=== PATIENT | female | born 1950 | race Caucasian/White ===

== ENCOUNTER → 2017-03-02 | Outpatient (CLI) | payer MEDICARE ==
[~2017-03-02] MED LIST: /AUGM875TA; /LANS30GR; ACIDCAP PO; ASPI325T PO; ATOR1TAB18 PO; BABY81CH; BACL10TA2 PO; BACT400T PO; BUPR300T34 PO; BUTR10DI2 TD; CAHNTIXC PO; CALCTAB93; CARAFATE; CHAN0.5P PO; CLARINEX PO; CRANBERRY PILLS; CYCL5TA PO; DIFLUC150 PO; DIOV160T5; DIOV320T PO; DIOV80TA; DIOVAN80 PO; DIOVANH160 PO; DULO30CA PO; DYAZCA PO; FISH OIL; FISH100035 PO; GABA300C2 PO; GLIP5TAB8 PO; HABITROL14 TOPICAL; HABITROL2 TOPICAL; HABITROL7 TOPICAL; HCT; HYDR7.5T38 PO; JANU100T PO; LANS30CA PO; LASI40TA PO; LIPITOR10 PO; LIPITOR20 DAILY; LIPITOR20 PO; METF1000 PO; METF500T PO; MULTLIQ7; NASONEX NASAL; NICOTROLIN PO; NYSTATIN POWDER; NYSTATINP TOPICAL; PREMARI625 PO; PREV15CA; PREVACID30 PO; SIMV5TAB2; THERGRAN; TRAM50TA2 PO; TYL325; VALS40TA; VICO5TAB; VIT D; VITA200016 PO; WELL75TA PO; WELLBSR150 PO; WELLBUT300 PO; XANA0.5T PO; ZITHROM500 PO; ZOCO40TA; ZOCOR40 PO; [UNRECOGNIZED DRUG - CODE] PO; [UNRECOGNIZED DRUG - OTHER]; [UNRECOGNIZED DRUG - OTHER]
[2017-03-02 13:40] LABS: MEAN CORPUSCULAR HEMOGLOBIN 30.3 pg (27.0-33.0); MEAN CORPUSCULAR HGB CONC 32.4 g/dl (32.0-36.5); MEAN CORPUSCULAR VOLUME 93.5 fl (80.0-96.0); RED CELL DISTRIBUTION WIDTH 13.6 % (11.5-14.5); WHITE BLOOD COUNT 8.8 K/mm3 (4.0-10.0)
[2017-03-02 14:33] LABS: ALBUMIN 3.4 GM/DL (3.2-5.2); ALKALINE PHOSPHATASE 72 U/L (45-117); ALT/SGPT 29 U/L (12-78); ANION GAP 7 MEQ/L (8-16); AST/SGOT 32 U/L (15-37); BILIRUBIN,TOTAL 0.4 MG/DL (0.2-1.0); BLOOD UREA NITROGEN 11 MG/DL (7-18); CALCIUM LEVEL 9.5 MG/DL (8.8-10.2); CARBON DIOXIDE LEVEL 30 MEQ/L (21-32); CHLORIDE LEVEL 103 MEQ/L (98-107); CHOLESTEROL LEVEL 116 MG/DL (<200); CREATININE FOR GFR 0.75 MG/DL (0.55-1.02); GLOMERULAR FILTRATION RATE > 60.0 (>45); GLUCOSE, FASTING 112 MG/DL (80-110); MAGNESIUM LEVEL 1.9 MG/DL (1.8-2.4); POTASSIUM SERUM 4.6 MEQ/L (3.5-5.1); SODIUM LEVEL 140 MEQ/L (136-145); TOTAL PROTEIN 6.8 GM/DL (6.4-8.2); TRIGLYCERIDES LEVEL 143 MG/DL (<150)
== END ==
LOC: M WUC 09:52
PROVIDERS: ATTEND Nurse Practitioner Family
DX: E11.9 Type 2 diabetes mellitus without complications (principal); I10 Essential (primary) hypertension; E78.2 Mixed hyperlipidemia; F32.9 Major depressive disorder, single episode, unspecified; K21.9 Gastro-esophageal reflux disease without esophagitis; M54.41 Lumbago with sciatica, right side; E55.9 Vitamin D deficiency, unspecified; E83.42 Hypomagnesemia; E66.01 Morbid (severe) obesity due to excess calories; Z68.43 Body mass index [BMI] 50.0-59.9, adult; Z72.0 Tobacco use; J30.2 Other seasonal allergic rhinitis

== ENCOUNTER → 2017-03-04 | Outpatient (REF) | payer MEDICARE | LOC: M SFHCPLAZ 08:09 | PROVIDERS: ATTEND Nurse Practitioner Family | DX: E11.9 Type 2 diabetes mellitus without complications (principal); Z53.8 Procedure and treatment not carried out for other reasons ==

== ENCOUNTER → 2017-06-03 | Outpatient (CLI) | payer MEDICARE ==
[~2017-06-03] MED LIST changes: -ATOR1TAB18 PO; +ATOR80TA59 PO; +BUTR10DI TD; -BUTR10DI2 TD; -METF1000 PO; +METF10004 PO; -METF500T PO; +METF500T13 PO
[2017-06-03 14:10] LABS: ANION GAP 11 MEQ/L (8-16); BLOOD UREA NITROGEN 10 MG/DL (7-18); CALCIUM LEVEL 9.8 MG/DL (8.8-10.2); CARBON DIOXIDE LEVEL 24 MEQ/L (21-32); CHLORIDE LEVEL 103 MEQ/L (98-107); CREATININE FOR GFR 0.92 MG/DL (0.55-1.02); GLOMERULAR FILTRATION RATE > 60.0 (>45); GLUCOSE, FASTING 105 MG/DL (80-110); POTASSIUM SERUM 4.3 MEQ/L (3.5-5.1); SODIUM LEVEL 138 MEQ/L (136-145)
== END ==
LOC: M WUC 09:43
PROVIDERS: ATTEND Internal Medicine Cardiovascular Disease
DX: E11.9 Type 2 diabetes mellitus without complications (principal)

== ENCOUNTER → 2017-06-03 | Outpatient (CLI) | payer MEDICARE ==
[2017-06-03 14:11] LABS: BLOOD UREA NITROGEN 11 MG/DL (7-18); CREATININE FOR GFR 0.91 MG/DL (0.55-1.02); GLUCOSE, FASTING 102 MG/DL (80-110)
[2017-06-03 14:12] LABS: ALBUMIN 3.6 GM/DL (3.2-5.2); ALBUMIN/GLOBULIN RATIO 1.03 (1.00-1.93); ALKALINE PHOSPHATASE 66 U/L (45-117); ALT/SGPT 26 U/L (12-78); ANION GAP 10 MEQ/L (8-16); AST/SGOT 18 U/L (15-37); BILIRUBIN,TOTAL 0.5 MG/DL (0.2-1.0); CALCIUM LEVEL 9.8 MG/DL (8.8-10.2); CARBON DIOXIDE LEVEL 25 MEQ/L (21-32); CHLORIDE LEVEL 103 MEQ/L (98-107); CHOLESTEROL LEVEL 109 MG/DL (<200); GLOMERULAR FILTRATION RATE > 60.0 (>45); MAGNESIUM LEVEL 1.7 MG/DL (1.8-2.4); POTASSIUM SERUM 4.3 MEQ/L (3.5-5.1); SODIUM LEVEL 138 MEQ/L (136-145); TOTAL PROTEIN 7.1 GM/DL (6.4-8.2); TRIGLYCERIDES LEVEL 158 MG/DL (<150)
== END ==
LOC: M WUC 09:51
PROVIDERS: ATTEND Nurse Practitioner Family
DX: E78.2 Mixed hyperlipidemia (principal); E11.9 Type 2 diabetes mellitus without complications; E83.42 Hypomagnesemia

== ENCOUNTER → 2017-09-14 | Outpatient (CLI) | payer MEDICARE ==
[2017-09-14 14:38] LABS: ALBUMIN 3.6 GM/DL (3.2-5.2); ALBUMIN/GLOBULIN RATIO 1.16 (1.00-1.93); ALKALINE PHOSPHATASE 55 U/L (45-117); ALT/SGPT 20 U/L (12-78); ANION GAP 10 MEQ/L (8-16); AST/SGOT 17 U/L (7-37); BILIRUBIN,TOTAL 0.4 MG/DL (0.2-1.0); BLOOD UREA NITROGEN 12 MG/DL (7-18); CALCIUM LEVEL 9.4 MG/DL (8.8-10.2); CARBON DIOXIDE LEVEL 26 MEQ/L (21-32); CHLORIDE LEVEL 105 MEQ/L (98-107); CREATININE FOR GFR 0.79 MG/DL (0.55-1.02); GLOMERULAR FILTRATION RATE > 60.0 (>45); GLUCOSE, FASTING 98 MG/DL (80-110); POTASSIUM SERUM 4.5 MEQ/L (3.5-5.1); SODIUM LEVEL 141 MEQ/L (136-145); TOTAL PROTEIN 6.7 GM/DL (6.4-8.2)
== END ==
LOC: M WUC 09:42
PROVIDERS: ATTEND Nurse Practitioner Family
DX: E11.8 Type 2 diabetes mellitus with unspecified complications (principal); E66.9 Obesity, unspecified

== ENCOUNTER → 2018-02-23 | Outpatient (CLI) | payer MEDICARE | LOC: M WHC 09:19 | DX: Z78.0 Asymptomatic menopausal state (principal) | CPT/HCPCS: 77080 ==

== ENCOUNTER → 2018-03-05 | Outpatient (CLI) | payer MEDICARE ==
[2018-03-05 10:47] LABS: ALBUMIN 3.8 GM/DL (3.2-5.2); ALBUMIN/GLOBULIN RATIO 1.09 (1.00-1.93); ALKALINE PHOSPHATASE 72 U/L (45-117); ALT/SGPT 22 U/L (12-78); ANION GAP 7 MEQ/L (8-16); AST/SGOT 20 U/L (7-37); BILIRUBIN,TOTAL 0.4 MG/DL (0.2-1.0); BLOOD UREA NITROGEN 12 MG/DL (7-18); CALCIUM LEVEL 9.8 MG/DL (8.8-10.2); CARBON DIOXIDE LEVEL 27 MEQ/L (21-32); CHLORIDE LEVEL 105 MEQ/L (98-107); CHOLESTEROL LEVEL 146 MG/DL (<200); CHOLESTEROL RISK RATIO 2.474 (<5); GLOMERULAR FILTRATION RATE > 60.0 (>45); GLUCOSE, FASTING 108 MG/DL (70-100); HDL CHOLESTEROL 59 MG/DL (>40); LDL CHOLESTEROL 59.6 MG/DL (<100); NON-HDL-C 87 MG/DL; POTASSIUM SERUM 4.6 MEQ/L (3.5-5.1); SODIUM LEVEL 139 MEQ/L (136-145); TOTAL PROTEIN 7.3 GM/DL (6.4-8.2); TRIGLYCERIDES LEVEL 137 MG/DL (<150)
[2018-03-05 10:48] LABS: TOTAL 25(OH) VITAMIN D 40.9 NG/ML (30.0-100.0)
[2018-03-05 11:12] LABS: MAU/CREAT RATIO 33.3 MCG/MG (0.0-30.0)
[2018-03-05 11:39] LABS: ESTIMATED AVERAGE GLUCOSE 131 MG/DL (60-110); HEMOGLOBIN A1c 6.2 %
== END ==
LOC: M WUC 08:59
DX: E11.8 Type 2 diabetes mellitus with unspecified complications (principal); R80.9 Proteinuria, unspecified; E55.9 Vitamin D deficiency, unspecified
CPT/HCPCS: 83735

== ENCOUNTER → 2018-04-12 | Outpatient (CLI) | payer MEDICARE | LOC: M RAD 10:58 | DX: Z12.2 Encounter for screening for malignant neoplasm of respiratory organs (principal); F17.210 Nicotine dependence, cigarettes, uncomplicated | CPT/HCPCS: G0297 ==

== ENCOUNTER → 2018-06-16 | Outpatient (CLI) | payer MEDICARE | LOC: M RAD 12:54 | DX: R60.0 Localized edema (principal); D17.39 Benign lipomatous neoplasm of skin and subcutaneous tissue of other sites | CPT/HCPCS: 93971 ==

== ENCOUNTER → 2019-01-05 | Outpatient (REF) | payer MEDICARE ==
[~2019-01-05] MED LIST changes: -LASI40TA PO; +LASI40TA9 PO
[2019-01-05 12:38] LABS: MAU/CREAT RATIO 67.7 MCG/MG (0.0-30.0)
[2019-01-05 13:04] LABS: ALBUMIN 3.7 GM/DL (3.2-5.2); ALT/SGPT 20 U/L (12-78); BILIRUBIN,TOTAL 0.5 MG/DL (0.2-1.0); BLOOD UREA NITROGEN 15 MG/DL (7-18); CALCIUM LEVEL 9.9 MG/DL (8.8-10.2); CARBON DIOXIDE LEVEL 28 MEQ/L (21-32); CHLORIDE LEVEL 104 MEQ/L (98-107); CHOLESTEROL LEVEL 140 MG/DL (<200); CHOLESTEROL RISK RATIO 2.258 (<5); CREATININE FOR GFR 0.82 MG/DL (0.55-1.30); FREE T4 1.07 NG/DL (0.76-1.46); GLOMERULAR FILTRATION RATE > 60.0 (>45); GLUCOSE, FASTING 123 MG/DL (70-100); HDL CHOLESTEROL 62 MG/DL (>40); LDL CHOLESTEROL 46 MG/DL (<100); NON-HDL-C 78 MG/DL; POTASSIUM SERUM 5.4 MEQ/L (3.5-5.1); SODIUM LEVEL 139 MEQ/L (136-145); TOTAL 25(OH) VITAMIN D 26.8 NG/ML (30.0-100.0); TOTAL PROTEIN 7.2 GM/DL (6.4-8.2); TRIGLYCERIDES LEVEL 159 MG/DL (<150)
[2019-01-05 14:30] LABS: HEMOGLOBIN A1c 6.1 %
== END ==
LOC: M SFHCPLAZ 08:23
PROVIDERS: ATTEND Nurse Practitioner Family
DX: Z00.00 Encounter for general adult medical examination without abnormal findings (principal); E78.2 Mixed hyperlipidemia; E55.9 Vitamin D deficiency, unspecified

== ENCOUNTER → 2019-06-21 | Outpatient (CLI) | payer MEDICARE ==
[~2019-06-21] MED LIST changes: -CYCL5TA PO; +CYCL5TAB5 PO; -DULO30CA PO; +DULO30CA9 PO
[2019-06-21 09:41] LABS: ALBUMIN 3.7 GM/DL (3.2-5.2); ALT/SGPT 18 U/L (12-78); BILIRUBIN,TOTAL 0.4 MG/DL (0.2-1.0); BLOOD UREA NITROGEN 15 MG/DL (7-18); CARBON DIOXIDE LEVEL 26 MEQ/L (21-32); CHLORIDE LEVEL 103 MEQ/L (98-107); CREATININE FOR GFR 0.89 MG/DL (0.55-1.30); GLOMERULAR FILTRATION RATE > 60.0 (>45); GLUCOSE, FASTING 117 MG/DL (70-100); POTASSIUM SERUM 4.6 MEQ/L (3.5-5.1); SODIUM LEVEL 139 MEQ/L (136-145); TOTAL PROTEIN 7.1 GM/DL (6.4-8.2)
[2019-06-21 09:48] LABS: TOTAL 25(OH) VITAMIN D 37.2 NG/ML (30.0-100.0)
--- NOTE | 2019-06-21 13:12 | REP ---
Low-dose lung screening CT of the chest: The study is performed without IV contrast. The images are presented at lung windowing only. Comparison is 04/12/2018. There is a 5 mm pleural-based right upper lobe lung nodule on image 40, stable and unchanged from the prior study. There are no other lung nodules or masses. There are no infiltrates or pleural effusions. Impression: Category II low-dose lung screening chest CT. The probability of malignancy is less than 1%. Depending on risk factors consider follow-up annual low-dose lung screening CT. Electronically Signed by Femi Ulloa MD 06/21/2019 01:03 P
[2019-06-21 14:13] LABS: HEMOGLOBIN A1c 6.2 %
== END ==
LOC: M RAD 08:42
PROVIDERS: ATTEND Nurse Practitioner Family
DX: E11.8 Type 2 diabetes mellitus with unspecified complications (principal); E55.9 Vitamin D deficiency, unspecified; F17.210 Nicotine dependence, cigarettes, uncomplicated; Z79.82 Long term (current) use of aspirin
CPT/HCPCS: 36415; 80053; 82306; 83036; G0297

== ENCOUNTER → 2020-07-27 | Outpatient (REF) | payer MEDICARE ==
[2020-07-27 14:09] LABS: BASO # 0.1 10^3/uL (0.0-0.2); BASO % 0.5 % (0.0-1.0); EOS # 0.2 10^3/uL (0.0-0.5); EOS % 1.8 % (0.0-3.0); HEMATOCRIT 42.7 % (36.0-47.0); HEMOGLOBIN 13.5 g/dl (12.0-15.5); LYMPH # 2.7 10^3/uL (1.5-5.0); LYMPH % 21.9 % (24.0-44.0); MEAN CORPUSCULAR HEMOGLOBIN 29.2 pg (27.0-33.0); MEAN CORPUSCULAR HGB CONC 31.6 g/dl (32.0-36.5); MEAN CORPUSCULAR VOLUME 92.4 fl (80.0-96.0); MONO # 0.9 10^3/uL (0.0-0.8); NEUTROPHILS # 8.4 10^3/uL (1.5-8.5); NEUTROPHILS % 68.2 % (36.0-66.0); PLATELET COUNT, AUTOMATED 358 10^3/uL (150-450); RED BLOOD COUNT 4.62 10^6/uL (4.00-5.40); WHITE BLOOD COUNT 12.3 10^3/uL (4.0-10.0)
[2020-07-27 14:36] LABS: ALBUMIN 3.6 GM/DL (3.2-5.2); ALT/SGPT 16 U/L (12-78); BILIRUBIN,TOTAL 0.3 MG/DL (0.2-1.0); BLOOD UREA NITROGEN 14 MG/DL (7-18); CALCIUM LEVEL 9.8 MG/DL (8.8-10.2); CARBON DIOXIDE LEVEL 27 MEQ/L (21-32); CHLORIDE LEVEL 103 MEQ/L (98-107); CHOLESTEROL LEVEL 139 MG/DL (<200); CHOLESTEROL RISK RATIO 2.355 (<5); CREATININE FOR GFR 0.76 MG/DL (0.55-1.30); GLOMERULAR FILTRATION RATE > 60.0 (>39); GLUCOSE, FASTING 85 MG/DL (70-100); HDL CHOLESTEROL 59 MG/DL (>40); LDL CHOLESTEROL 51 MG/DL (<100); NON-HDL-C 80 MG/DL; POTASSIUM SERUM 5.1 MEQ/L (3.5-5.1); SODIUM LEVEL 136 MEQ/L (136-145); TOTAL PROTEIN 7.2 GM/DL (6.4-8.2); TRIGLYCERIDES LEVEL 146 MG/DL (<150)
[2020-07-27 14:38] LABS: HEMOGLOBIN A1c 5.5 %
[2020-07-27 14:45] LABS: TOTAL 25(OH) VITAMIN D 30.9 NG/ML (30.0-100.0)
== END ==
LOC: M SFHCPLAZ 11:53
PROVIDERS: ATTEND Nurse Practitioner Family
DX: I10 Essential (primary) hypertension (principal); E11.622 Type 2 diabetes mellitus with other skin ulcer; L03.115 Cellulitis of right lower limb; E78.2 Mixed hyperlipidemia; E55.9 Vitamin D deficiency, unspecified; Z79.899 Other long term (current) drug therapy

== ENCOUNTER 2020-12-29 19:04 | Inpatient (IN) | payer MEDICARE ==
[~2020-12-29] VITALS: Ht 177.8 cm; Wt 122.1 kg
[~2020-12-29 19:04] MED LIST changes: +CALCIUM CHLORIDE 10% 1 GM/10 ML SYR ONE; +EPINEPHrine 1MG/10ML SYRINGE 1.5IN ONE; +SODIUM BICARBONATE 8.4% INJ 50 ML SYRINGE ONE
[2020-12-29] MEDS ORDERED: SUCCINYLCHOLINE INJ 200 MG/10 ML VIAL (J0330) IV STA (19:18)
[2020-12-29] MEDS ORDERED: ETOMIDATE INJ 20MG/10ML VIAL IV STA (19:18)
[2020-12-29] MEDS ORDERED: NS 1,000 ML IV ONE ×3 (19:20→21:45)
[2020-12-29] MEDS ORDERED: EPINEPHrine 1MG/10ML SYRINGE 1.5IN IV STA ×5 (19:24→20:03)
[2020-12-29 19:25] LABS: HEMOGLOBIN 12.6 g/dl (12.0-15.5); MEAN CORPUSCULAR HEMOGLOBIN 27.7 pg (27.0-33.0); MEAN CORPUSCULAR HGB CONC 31.5 g/dl (32.0-36.5); MEAN CORPUSCULAR VOLUME 87.9 fl (80.0-96.0); PLATELET COUNT, AUTOMATED 455 10^3/uL (150-450); RED BLOOD COUNT 4.55 10^6/uL (4.00-5.40)
[2020-12-29 19:29] LABS: WHITE BLOOD COUNT 24.4 10^3/uL (4.0-10.0)
[2020-12-29] MEDS ORDERED: SODIUM BICARBONATE 8.4% INJ 50 ML SYRINGE IV STA ×3 (19:31→20:03)
[2020-12-29 19:36] LABS: INR 1.38; PARTIAL THROMBOPLASTIN TIME 25.7 SECONDS (24.2-38.5); PROTHROMBIN TIME 17.3 SECONDS (12.5-14.3)
[2020-12-29 19:41] LABS: ATYPICAL LYMPH 1 % (0-5); LYMPHOCYTES 16 % (16-44); METAMYELOCYTES 1 % (0-0); MONOCYTES 4 % (0-5); NEUTROPHILS 76 % (28-66)
[2020-12-29 19:42] LABS: PLATELET CLUMPS SMALL AMT; PLATELET ESTIMATE INCREASED (NORMAL); TOXIC VACUOLATION 1+
[2020-12-29 20:20] LABS: ALBUMIN 2.1 GM/DL (3.2-5.2); BILIRUBIN,DIRECT 0.3 MG/DL (0.0-0.2); BILIRUBIN,TOTAL 0.4 MG/DL (0.2-1.0); C REACTIVE PROTEIN QUANTITATIV 16.1 MG/DL (0.00-0.30); CALCIUM LEVEL 8.9 MG/DL (8.8-10.2); CREATININE FOR GFR 5.55 MG/DL (0.55-1.30); GLOMERULAR FILTRATION RATE 8.1 (>39); MB/CK RELATIVE INDEX 2.9 (< OR =4); TOTAL PROTEIN 6.9 GM/DL (6.4-8.2); TROPONIN I 0.02 NG/ML (< 0.10)
[2020-12-29] MEDS ORDERED: DEXTROSE 50% 50 ML SYRINGE IV STA (20:33)
--- NOTE | 2020-12-29 20:34 | REPVR ---
PROCEDURE INFORMATION: Exam: XR Chest Exam date and time: 12/29/2020 8:28 PM Age: 70 years old Clinical indication: Device placement; Ett placement (vent status); Additional info: Post intubation TECHNIQUE: Imaging protocol: XR of the chest Views: 1 view. COMPARISON: CR CHEST 2 VIEW 01/28/2016 8:31 AM FINDINGS: Tubes, catheters and devices: Endotracheal tube demonstrated with the tip of the tube located 5.2 cm. above the lexi. Lungs: Unremarkable. No consolidation. Pleural spaces: Unremarkable. No pleural effusion. No pneumothorax. Heart/Mediastinum: Unremarkable. No cardiomegaly. Bones/joints: Unremarkable. IMPRESSION: No acute findings. Electronically signed by: Raciel Hsieh On 12/29/2020 20:34:59 PM
[2020-12-29] MEDS ORDERED: CALCIUM CHLORIDE 10% 1 GM in D5W 100 ML IV ONE (20:35)
[2020-12-29] MEDS ORDERED: CALCIUM GLUCONATE 1,000 MG in D5W MINI-BAG PLUS 100 ML IV ONE (20:35)
--- NOTE | 2020-12-29 20:35 | REPVR ---
PROCEDURE INFORMATION: Exam: XR Chest Exam date and time: 12/29/2020 8:28 PM Age: 70 years old Clinical indication: Device placement; Ett placement (vent status); Additional info: Eval et tube TECHNIQUE: Imaging protocol: XR of the chest Views: 1 view. COMPARISON: CR CHEST 2 VIEW 01/28/2016 8:31 AM FINDINGS: Tubes, catheters and devices: Endotracheal tube demonstrated with the tip of the tube located 3.4 cm. above the lexi. Lungs: Unremarkable. No consolidation. Pleural spaces: Unremarkable. No pleural effusion. No pneumothorax. Heart/Mediastinum: Unremarkable. No cardiomegaly. Bones/joints: Unremarkable for age. IMPRESSION: No acute findings. Electronically signed by: Raciel Hsieh On 12/29/2020 20:35:49 PM
--- NOTE | 2020-12-29 20:40 | REPVR ---
PROCEDURE INFORMATION: Exam: CT Head Without Contrast Exam date and time: 12/29/2020 8:18 PM Age: 70 years old Clinical indication: Altered mental status/memory loss; Patient HX: PT coding, unable to obtain better images TECHNIQUE: Imaging protocol: Computed tomography of the head without contrast. Radiation optimization: All CT scans at this facility use at least one of these dose optimization techniques: automated exposure control; mA and/or kV adjustment per patient size (includes targeted exams where dose is matched to clinical indication); or iterative reconstruction. COMPARISON: No relevant prior studies available. FINDINGS: Brain: Limited evaluation of the parenchyma due to extensive artifact and patient motion demonstrates diffuse parenchymal atrophy. Cerebral ventricles: No ventriculomegaly. Bones/joints: Unremarkable. No acute fracture. Paranasal sinuses: Inflammatory changes in the ethmoid and sphenoid sinuses. Mastoid air cells: Visualized mastoid air cells are well aerated. Soft tissues: Unremarkable. IMPRESSION: Very limited evaluation as described above. Repeat evaluation as soon as clinically feasible suggested. Electronically signed by: Raciel Hsieh On 12/29/2020 20:40:49 PM
[2020-12-29] MEDS ORDERED: HumuLIN R (REGULAR) INSULIN (NovoLIN R) **100U/ML** PER UNIT IV ONE (20:45)
[2020-12-29] MEDS ORDERED: VITA50005 PO (20:50)
[2020-12-29] MEDS ORDERED: BAYE325T13 PO (20:50)
[2020-12-29] MEDS ORDERED: FURO20TA2 PO (20:50)
[2020-12-29] MEDS ORDERED: ATOR40TA75 PO (20:50)
[2020-12-29] MEDS ORDERED: DULO60CA35 PO (20:50)
[2020-12-29] MEDS ORDERED: IBUP80TA PO (20:52)
[2020-12-29] MEDS ORDERED: FAMO40TA3 PO (20:52)
[2020-12-29] MEDS ORDERED: METO1TAB87 PO (20:52)
[2020-12-29] MEDS ORDERED: GABA-282 PO (20:52)
[2020-12-29] MEDS ORDERED: med rec comment (20:57)
[2020-12-29] MEDS ORDERED: CHLORHEXIDINE GLUCONATE 0.12 % 15ML UDC (PERIDEX ORAL RINSE) MT SCH (21:00)
[2020-12-29] MEDS ORDERED: NOREPINEPHRINE BITARTRATE 8 MG in D5W 492 ML IV SCH ×2 (21:05→21:12)
[2020-12-29 21:16] LABS: MAGNESIUM LEVEL 2.8 MG/DL (1.8-2.4); PHOSPHORUS LEVEL 8.9 MG/DL (2.5-4.9)
[2020-12-29] MEDS ORDERED: NS 1,000 ML IV SCH ×2 (21:41→21:55)
[2020-12-29] MEDS ORDERED: MORPHINE 2 MG/ML 1ML VIAL (J2270) IV PRN (21:55)
[2020-12-29] MEDS ORDERED: VANCOMYCIN HCL 1,000 MG, VIAL MATE ADAPTER 1 EACH in NS 250 ML IV SCH (21:55)
[2020-12-29] MEDS ORDERED: MIDAZOLAM INJ 2MG/2ML VIAL (J2250 PER 1MG) IV PRN (21:55)
[2020-12-29] MEDS ORDERED: VANCOMYCIN INTERMITTENT/PULSE DOSING BY CLINICAL PHARMACIST PER DOSING PROTOCOL XX SCH (22:00)
[2020-12-29] MEDS ORDERED: HEPARIN SOD (PORCINE) 5000UNITS/ML 1ML VIAL/SYRINGE SC SCH (22:00)
[2020-12-29 22:19] VITALS: BP 71/31
[2020-12-29] MEDS ORDERED: SODIUM BICARBONATE 150 MEQ in STERILE WATER LITER BAG 1,000 ML IV SCH (23:00)
[2020-12-29] MEDS ORDERED: VANCOMYCIN HCL 1,000 MG, VIAL MATE ADAPTER 1 EACH in NS 250 ML IV ONE (23:00)
[2020-12-30] MEDS ORDERED: VANCOMYCIN HCL 1,000 MG, VIAL MATE ADAPTER 1 EACH in NS 250 ML IV ONE ×3
[2020-12-30] MEDS ORDERED: IPRATROPIUM 0.5MG/ALBUTEROL 2.5MG INH SOL UD 3ML (DUONEB) NEB SCH
[2020-12-30] MEDS ORDERED: HumaLOG INSULIN (NovoLOG) PER UNIT SC SCH
[2020-12-30] MEDS ORDERED: EPINEPHrine 1MG/10ML SYRINGE 1.5IN IV STA ×7 (00:37→00:43)
[2020-12-30] MEDS ORDERED: CALCIUM CHLORIDE 10% 1 GM/10 ML SYR IV STA ×2 (00:53)
[2020-12-30] MEDS ORDERED: SODIUM BICARBONATE 8.4% INJ 50 ML SYRINGE IV STA (00:53)
[2020-12-30] MEDS ORDERED: MEROPENEM INJ 500 MG in IV 1 EA IV SCH (01:00)
[2020-12-30] MEDS ORDERED: PANTOPRAZOLE 40MG VIAL (C9113 PER 1) IV SCH (09:00)
[2020-12-30] MEDS ORDERED: NOREPINEPHRINE BITARTRATE 8 MG in D5W 492 ML IV SCH (09:00)
--- NOTE | 2020-12-30 12:21 | ECGEPIP ---
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
--- NOTE | 2020-12-31 09:18 | CCN ---
CRITICAL CARE NOTE DATE: 12/29/2020 ADDENDUM: During my dictation, the patient had another cardiac arrest. This was run by the ER. This was in contact with her son who is here in the waiting room. She essentially became asystolic. The son at that time decided to stop all resuscitative measures and she . I am told by Dr. Kirk that this case clearly is being referred to the phlebotomist medical lab assistant and I am in full agreement.
--- NOTE | 2020-12-31 09:24 | HPE ---
HISTORY AND PHYSICAL/CRITICAL CARE ADMIT NOTE DATE OF ADMISSION: 12/29/2020 START TIME: 2119. STOP TIME: 2214. HISTORY OF PRESENT ILLNESS: I was called to the ER to attend Danielle Rivera. This is a 70-year-old female with known diabetes, neuropathy and profound nonhealing wounds of the lower extremities for which she has refused care. She has been seen by primary care for these who has advised inpatient admission due to concern over need for amputation but she signed forms against medical advice. Apparently she was spoken to by phone by her son yesterday and was felt to be altered. Today she was found unresponsive. Reportedly by EMS she was covered in feces and essentially had to be peeled from the chair that she was in. She was agonally breathing, was bagged on the way in. Here in the ER she was intubated. She had a cardiopulmonary arrest. She was resuscitated. She has had repeated arrests at least three times now requiring multiple doses of Epinephrine as well as CPR. She was shocked once for an episode of V-tach. First arterial blood gases obtained at 1951 hours had pH 7.240, pCO2 27, pO2 186. Repeat gas done at 2038 has pH 6.976, pCO2 28, pO2 404. Repeat gas done again at 2137 hours has pH now of 6.89, pCO2 22.6 and pO2 340. Chest x-ray shows the endotracheal tube in good position. No obvious infiltrates. She had a left femoral line placed by the ER and is currently on Levophed drip. She has received about 1.5 liters of saline and multiple doses of calcium for markedly elevated potassium. She is unable to give any history. Much of the history is obtained from her son by Dr. Kirk. ALLERGIES: LISTED PENICILLIN, BUPRENORPHINE, CLAVULANIC ACID AND HYDROCODONE. Unknown when she has last taken any of her other medications. SOCIAL HISTORY: According to most recent outpatient records she is an active smoker. PAST MEDICAL HISTORY: Significant for diabetes, nonhealing ulcers and neuropathy. REVIEW OF SYSTEMS: Otherwise unobtainable. PHYSICAL EXAMINATION: GENERAL: Quite critically ill-appearing elderly female, intubated in the ER. VITAL SIGNS: Blood pressure on Levophed drip systolic of 150, blood pressure currently 110-120 with sinus mechanism, respiratory rate about 26-18 without evidence of accessory muscle use. HEENT: Oral endotracheal tube. Pupils still reactive. Sclerae clear. Trachea midline. Jugular venous difficult to assess. She has an external compression device in place. LUNGS: [place] with symmetric expansion. No focal wheeze, rhonchi, crackles or rubs. CARDIAC: Distant tachycardic but regular. ABDOMEN: Distended, there are tympanitic bowel sounds and mildly hyperresonant and mild tympany to percussion. EXTREMITIES: Bilateral upper extremities seem reasonable. Bilateral lower extremities and the lower abdomen show multiple excoriations, caked feces, both legs are somewhat cool, pale, and there are marked wounds the entire length of both extremities with necrotic skin, foul smelling and what appeared to be foreign debris in the form of either animal dander or fabric from her furniture stuck to all of her wounds. NEUROLOGIC: She has received no sedation but is essentially unresponsive except to markedly painful stimuli. OTHER LABORATORIES: White blood cell count 24.4, hemoglobin 12.6, platelet count 455,000, 76% segs, 2 bands. Sodium 121, K 9.0, chloride 95, CO2 11, BUN 166, creatinine 5.55, lactated acid 3.9, phosphorus 8.9, bilirubin 0.4, albumin 2.1, CRP 16, LFTs otherwise unremarkable. Coag show INR 1.38. Blood gas as outlined above. Chest x-ray shows no acute abnormalities. CT scan of the head was reviewed and shows extensive motion artifact, no obvious abnormalities felt to be evidenced by the radiologist. IMPRESSION: 1. Respiratory failure, multifactorial. 2. Profound metabolic acidosis, likely multifactorial. 3. Renal failure. 4. Hyperkalemia. 5. Hyperphosphatemia. 6. Diabetes. 7. Multiple nonhealing ulcers. 8. Suspect sepsis syndrome. 9. Status post cardiac arrest x4. RECCOMENDATIONS: At this point she is quite profoundly critically ill. We will resuscitate her aggressively with IV fluids. Will wean her Levophed as able. She is profoundly hyperkalemic. Her EKG does show some peak T waves but my suspicion is that some of this may be superfluous as with that degree of hyperkalemia we should not have been able to successfully resuscitate her. Certainly repeat labs are pending and if this is real we can consider consulting nephrology but she has to be a little bit more hemodynamically if she is going to tolerate dialysis or CRRT. We will cover her accordingly for her diabetes. Broad spectrum antimicrobials will be in play especially in view of and degree of her wounds. I am quite concerned about ongoing ischemia, may be of the GI tract but certainly of the lower extremities. In looking at the notes from the outpatient setting from primary care she has been counseled extensively regarding the risk of just this particular situation but essentially signed out AMA. Her son is here and has been spoken to multiple times by the ER. Despite all of the above information he still wishes her to be a full code and therefore we will proceed under that proviso. Also, DVT prophylaxis is in place. Cultures are currently pending. At this point there is a very high likelihood she will not survive this hospitalization. Repeat troponins will be checked as well as lactates. Repeat laboratories in several hours for her degree of acidosis will also be monitored. Her prognosis in view of all the above is quite grim. Will proceed accordingly.
== END 2020-12-30 01:07 | disposition expired | DRG 871 ==
LOC: M ED 19:04 → M ED INP 21:52 → CANRESERV 22:21 → ENRESERV 22:21
PROVIDERS: ADMIT Internal Medicine Pulmonary Disease; ATTEND Internal Medicine Pulmonary Disease
PROC: 5A1935Z Respiratory Ventilation, Less than 24 Consecutive Hours (ICD-10-PCS; principal; 2020-12-29)
DX: A41.9 Sepsis, unspecified organism (principal); J96.90 Respiratory failure, unspecified, unspecified whether with hypoxia or hypercapnia; E87.2 Acidosis; N17.9 Acute kidney failure, unspecified; I46.9 Cardiac arrest, cause unspecified; E87.5 Hyperkalemia; E83.39 Other disorders of phosphorus metabolism; E11.40 Type 2 diabetes mellitus with diabetic neuropathy, unspecified; E11.622 Type 2 diabetes mellitus with other skin ulcer; Z88.0 Allergy status to penicillin; Z88.8 Allergy status to other drugs, medicaments and biological substances; Z88.5 Allergy status to narcotic agent

== ENCOUNTER → 2020-12-31 | Outpatient (REF) ==
[~2020-12-31] MED LIST changes: +ATOR40TA75 PO; +BAYE325T13 PO; -CALCIUM CHLORIDE 10% 1 GM/10 ML SYR ONE; +DULO60CA35 PO; -EPINEPHrine 1MG/10ML SYRINGE 1.5IN ONE; +FAMO40TA3 PO; +FURO20TA2 PO; +GABA-282 PO; +IBUP80TA PO; +METO1TAB87 PO; -SODIUM BICARBONATE 8.4% INJ 50 ML SYRINGE ONE; +VITA50005 PO; +med rec comment
[2020-12-31 18:46] LABS: INFLUENZA A AMPLIFICATION NEGATIVE (NEGATIVE); INFLUENZA B AMPLIFICATION NEGATIVE (NEGATIVE)
== END ==
LOC: M LAB 12:41